=== PATIENT | male | born 1975 | race Two or more races ===

== ENCOUNTER 2022-03-11 11:00 | Emergency (ER) | payer OTHER ==
[2022-03-11 13:16] LABS: BASOPHIL 0.7 % (0-2); EOSINOPHIL 1.5 % (0-5); HCT 45.9 % (42.0-52.0); HGB 15.6 g/dl (13.2-18.0); LYMPHOCYTE 25.6 % (15-48); MCH 30.8 pg (25.0-31.0); MCV 90.5 fL (78.0-100.0); MPV 10.3 fL (6.0-9.5); NEUTROPHIL 65.8 % (41-80); NRBC 0; PLT 260 K/uL (150-400); RBC 5.07 M/uL (4.70-6.00); RDW 12.7 % (11.5-14.0); WBC 8.1 K/uL (4.0-10.5)
[2022-03-11 13:41] LABS: BUN/CREAT RATIO (CALC) 18.1 RATIO; CREATININE 0.83 mg/dL (0.67-1.17); POTASSIUM 4.3 mmol/L (3.5-5.1)
[2022-03-11 13:49] LABS: CORONAVIRUS 2019 SARS-COV-2 NEGATIVE (NEGATIVE); INFLUENZA A NAA NEGATIVE (NEGATIVE)
== END 2022-03-11 14:25 | disposition home or self-care (01) ==
LOC: FER 11:00
PROVIDERS: Nurse Practitioner Family
DX: R55 Syncope and collapse (principal); T67.9XXA Effect of heat and light, unspecified, initial encounter; Z20.822 Contact with and (suspected) exposure to COVID-19; Z28.311 Partially vaccinated for COVID-19
CPT/HCPCS: 36415; 71045; 80048; 84484; 85025; 93005; J7030; U0002